=== PATIENT | female | born 1935 | race Caucasian/White ===

== ENCOUNTER 2018-01-08 17:33 | Emergency (ER) | payer MEDICARE ==
[~2018-01-08] VITALS: Ht 160 cm; Wt 125.0 kg
[2018-01-08 17:47] VITALS: Ht 160 cm; Wt 125.0 kg
[2018-01-08] MEDS ORDERED: [UNRECOGNIZED DRUG - REMARK] (17:48)
[2018-01-08] MEDS ORDERED: NORVASC5 MG PO (17:48)
[2018-01-08] MEDS ORDERED: LIPITOR20 MG PO (17:49)
[2018-01-08 17:54] VITALS: BP 154/100
[2018-01-08] MEDS ORDERED: TYLENOL W/CODEI1 TAB PO (20:13)
[2018-01-08] MEDS ORDERED: AUGMENTIN 875-11 TAB PO (20:13)
== END 2018-01-08 20:37 | disposition home or self-care (01) ==
LOC: D.ER 17:33
DX: S62.521A Displaced fracture of distal phalanx of right thumb, initial encounter for closed fracture (principal); W23.0XXA Caught, crushed, jammed, or pinched between moving objects, initial encounter; Y93.89 Activity, other specified; Y92.89 Other specified places as the place of occurrence of the external cause; I10 Essential (primary) hypertension; S61.011A Laceration without foreign body of right thumb without damage to nail, initial encounter

== ENCOUNTER → 2018-08-16 15:13 | Outpatient (CLI) | payer MEDICARE ==
[2018-01-08 17:47] VITALS: BMI 48.8
[~2018-08-16 15:13] MED LIST: AUGMENTIN 875-11 TAB PO; IRON PO; LIPITOR10 MG PO; NORVASC5 MG PO; TRAZODONE HCL150 MG PO; TYLENOL W/CODEI1 TAB PO; VITAMIN D250000 UNIT PO; [UNRECOGNIZED DRUG - REMARK]
== END | disposition home or self-care (01) ==
LOC: D.LABREF 15:13
PROVIDERS: ATTEND Orthopaedic Surgery
DX: M17.11 Unilateral primary osteoarthritis, right knee (principal)

== ENCOUNTER → 2018-08-26 08:01 | Outpatient (CLI) | payer MEDICARE, BC ==
[2018-01-08 17:47] VITALS: BMI 48.8
== END | disposition home or self-care (01) ==
LOC: D.HCCARDIO 08:01
PROVIDERS: ATTEND Internal Medicine Cardiovascular Disease
DX: R94.31 Abnormal electrocardiogram [ECG] [EKG] (principal)

== ENCOUNTER 2018-09-05 11:23 | Outpatient (CLI) | payer MEDICARE, BC ==
[~2018-09-05] VITALS: Ht 160 cm; Wt 115.9 kg
--- NOTE | ~2018-09-05 | HEMODYNAMI ---
PATIENT:JAYLON CALABRESE NOVEMBER MEDICAL RECORD: [id number] : [birth year] LOCATION:[facility] ADMISSION DATE: 09/05/18 Generatedon:09/05/201814:17 Patient name: JAYLON CALABRESE Patient #: [id number] SSN: : 05/17/1939 Date of study: 09/05/2018 Page: Of Hemodynamic Procedure Report Patient Data Patient Demographics Procedure consent was obtained First Name: JAYLON Gender: Female Last Name: BHARATI : 05/17/1939 Middle Initial: NOVEMBER Age: 79 year(s) Patient #: [id number] Race: Unknown Additional ID: [id number] Contact details [address]: [address] [place] [address] State: [place] City: [place] Zip code: [address] Admission Admission Data Admission Date: 09/05/2018 Admission Time: 11:23 Admit Source: Other Weight (lbs.): 255.52 Weight (kg.): 115.9 Lab Results Lab Result Date: 09/05/2018 Lab Result Time: 0:00 Biochemistry Name Units Result Min Max BUN mg/dl 17 --(---*)-- 7 18 Creatinine mg/dl 1.1 --(--*-)-- 0.6 1.3 CBC Name Units Result Min Max Hematocrit % 40 -*(----)-- 42 54 Hemoglobin g/dl 13.7 --(*---)-- 13.5 17.5 Procedure Procedure Types Cath Procedure Diagnostic Procedure LHC LH w/Coronaries Sedation Charges Moderate Sedation up to 15 minutes PCI Procedure Coronary Stent Coronary Stent Initial Procedure Description Procedure Date Procedure Date: 09/05/2018 Procedure Start Time: 13:50 Procedure End Time: 14:16 Procedure Staff Name Function Sean Mcdermott MD Performing Physician Lacey Garcia RN Nurse Sonya Nova RT Scrub Cedric Whitaker RT Monitor Procedure Data Cath Procedure Fluoroscopy Diagnostic fluoroscopy Total fluoroscopy Time: 8 time: 8 min min Diagnostic fluoroscopy Total fluoroscopy dose: dose: 1611 mGy 1611 mGy Contrast Material Contrast Material Type Amount (ml) Isovue 300 132 Entry Location Entry Primary Successful Side Size Upsize Upsize Entry Closure Hoang ccessful Closure Location (Fr) 1 (Fr) 2 (Fr) Remarks Device Remarks Radial Right 6 Fr Mechanical artery Short Compression Estimated blood loss: 10 ml Diagnostic catheters Device Type Used For End Catheter Placement DIAGNOSTIC [place] 4.5 5Fr Procedure catheter ([id number]) DIAGNOSTIC [place] 110cm 5 Procedure Fr catheter ([id number]) Procedure Complications No complications Procedure Medications Medication Administration Route Dosage Oxygen etCO2 Nasal cannula 2 l/min Lidocaine 2% added to field 20 Heparin Flush Bag added to field 2 bags (1000units/500ml NS) 0.9% NaCl I.V. 100 ml/hr Radial Cocktail I.A. 1 syringe (Verapomil 2mg/Nitro 400mcg/Heparin 1500units) Versed I.V. 1 mg Fentanyl I.V. 50 mcg Versed I.V. 1 mg Fentanyl I.V. 50 mcg Fentanyl I.V. 50 mcg Heparin Bolus I.V. 38246 units Plavix P.O. 600 mg Hemodynamics Rest HGB: 13.7 (g/dl) Heart Rate: 61 (bpm) Pressure Samples Time Site Value (mmHg) Purpose Heart Use Rate(bpm) 13:53 LV 100/-3,5 Snapshot 77 Gradients Valve Time Site Site Mean SEP/DFP Peak To Heart Use 1 2 (mmHg) (sec/min) Peak Rate (mmHg) (bpm) Aortic 13:54 LV AO 73 Snapshots Pre Cath Intra NCS Post Cath Vital Signs Time Heart Resp SPO2 etCO2 NIBP (mmHg) Rhythm Pain Sedation Rate (ipm) (%) (mmHg) Status Level (bpm) 13:34:16 63 14 100 33.1 150/93(120) NSR 0 (11) 10(A) , No pain 13:38:38 63 14 100 32.4 155/90(131) NSR 0 (11) 10(A) , No pain 13:42:58 65 16 99 36.1 144/83(112) NSR 0 (11) 10(A) , No pain 13:47:12 73 38 95 15.8 112/74(93) NSR 0 (11) 10(A) , No pain 13:51:26 68 10 96 0 96/66(81) NSR 0 (11) 9(A) , No pain 13:55:38 71 12 93 0 78/54(64) NSR 0 (11) 9(A) , No pain 13:59:46 62 11 95 0 91/50(68) NSR 0 (11) 9(A) , No pain 14:03:58 61 23 95 20.3 106/56(83) NSR 0 (11) 9(A) , No pain 14:08:14 62 1 97 28.6 103/63(77) NSR 0 (11) 9(A) , No pain 14:12:30 60 26 97 30.1 99/57(74) NSR 0 (11) 10(A) , No pain 14:16:42 0 102/60(83) NSR 0 (11) 10(A) , No pain Medications Time Medication Route Dose Verified Delivered Reason Not es Effectiveness by by 13:32:34 Oxygen etCO2 2 l/min Sean Buffie used for Nasal Baldemar Garcia RN procedure cannula 13:32:40 Lidocaine 2% added 20ml Sean Sean for local to vial Baldemar Mcdermott MD anesthetic field 13:32:46 Heparin Flush added 2 bags Sean Sean used for Bag to Baldemar Mcdermott MD procedure (1000units/500ml field NS) 13:32:55 0.9% NaCl I.V. 100 Sean Buffie Per physician ml/hr Baldemar Garcia RN 13:33:02 Radial Cocktail I.A. 1 Sean Sean for (Verapomil syringe Baldemar Mcdermott MD vasodilation 2mg/Nitro 400mcg/Heparin 1500units) 13:46:42 Versed I.V. 1 mg Sean Buffie for sedation Baldemar Garcia RN 13:46:48 Fentanyl I.V. 50 mcg Sean Buffie for sedation Baldemar Garcia RN 13:52:06 Versed I.V. 1 mg Sean Buffie for sedation Baldemar Garcia RN 13:52:10 Fentanyl I.V. 50 mcg Sean Buffie for sedation Baldemar Garcia RN 14:03:23 Heparin Bolus I.V. 01861 Sean Buffie for JOSÉ LUIS IFIED units Baldemar Garcia RN anticoagulation WITH DR MCDERMOTT 14:07:46 Fentanyl I.V. 50 mcg Sean Buffie for sedation Baldemar Garcia RN 14:13:30 Plavix P.O. 600 mg Sean Garcia RN antiplatelet therapy Procedure Log Time Note 12:23:21 Informed consent obtained and on chart 12:23:25 Admit Source: Other 12:23:43 Diagnostic Cath status Elective 12:23:46 Time tracking: Regular hours (M-F 7:00 - 5:00) 12:23:50 Plan of Care:Hemodynamics will remain stable., Cardiac rhythm will remain stable., Comfort level will be maintained., Respiratory function will remain adequate., Patient/ family verbilizes understanding of procedure., Procedure tolerated without complication., Recovers from procedure without complications.. 12:26:05 H&P Date Dictated: 09/01/2018 Within 30 days and on chart., H&P Addendum completed by physician on day of procedure. (MUST COMPLETE FOR ALL OUTPATIENTS). 12:41:38 Lab Result : BUN 17 mg/dl 12:41:38 Lab Result : Creatinine 1.1 mg/dl 12:41:52 Patient Weight : 255.52 lbs 13:18:01 Sonya Counts RT(R) sent for patient. Start room use. 13:24:16 Patient received from Pre/Post Procedure Room to CCL 2 Alert and oriented. Tansferred to table in Supine position. 13:24:17 Warm blankets applied, and clair hugger turned on for patient comfort. 13:24:17 Correct patient and procedure confirmed by team. 13:24:18 ECG and BP/O2 sat monitors applied to patient. 13:24:32 Pre-procedure instructions explained to patient. 13:24:33 Pre-op teaching completed and patient verbalized understanding. 13:24:34 Family in waiting room. 13:24:35 Patient NPO since Midnight. 13:32:34 Oxygen 2 l/min etCO2 Nasal cannula was administered by Lacey Garcia RN; used for procedure; 13:32:40 Lidocaine 2% 20ml vial added to field was administered by Sean Mcdermott MD; for local anesthetic; 13:32:46 Heparin Flush Bag (1000units/500ml NS) 2 bags added to field was administered by Sean Mcdermott MD; used for procedure; 13:32:55 0.9% NaCl 100 ml/hr I.V. was administered by Lacey Garcia RN; Per physician; 13:33:02 Radial Cocktail (Verapomil 2mg/Nitro 400mcg/Heparin 1500units) 1 syringe I.A. was administered by Sean Mcdermott MD; for vasodilation; 13:33:05 Vital chart was started 13:36:53 Baseline sample Acquired. 13:36:59 Rhythm: sinus rhythm 13:37:00 Full Disclosure recording started 13:37:02 Is the patient allergic to Iodine/contrast media? No. 13:37:03 Is patient on blood thinner?No 13:37:04 Patient diabetic? No. 13:37:06 Previous problem with sedation/anesthesia? No ? 13:37:07 Snore? Yes 13:37:09 Sleep apnea? No 13:37:09 Deviated septum? No 13:37:10 Opens mouth fully? Yes 13:37:11 Sticks out tongue? Yes 13:37:12 Airway obstruction? No ? 13:37:19 Dentures? Yes partial in tight 13:37:21 Pre procedure: right dorsailis pedis pulse 2+ Normal; easily identifiable; not easily obliterated 13:37:24 Patient pain scale 0/10 ?. 13:37:25 Modified Carl's test Ulnar < 7 seconds 13:37:29 IV patent on arrival in left forearm with 0.9% NaCl at [facility]. 13:37:31 Lab results completed and on chart. 13:37:36 Right Radial & Right Groin area was prepped with chlora-prep and draped in sterile fashion 13:37:37 Alarms reviewed by R. N. 13:37:37 Sharps counted by scrub and verified by R.N. 13:38:26 Lab Result : Hematocrit 40 % 13:38:26 Lab Result : Hemoglobin 13.7 g/dl 13:38:30 Use device set Radial Dx or PCI 13:38:31 ACIST Syringe (10527) opened to sterile field. 13:38:32 Medline Cath Pack ([id number]) opened to sterile field. 13:38:32 Bag Decanter () opened to sterile field. 13:38:33 ACIST Hand Control (90537) opened to sterile field. 13:38:34 ACIST Manifold (61778) opened to sterile field. 13:38:34 Tegaderm 4 x 4 (1626W) opened to sterile field. 13:38:35 MBrace Wrist Support ([id number]) opened to sterile field. 13:38:36 SHEATH 6FR Slender (57-2136) opened to sterile field. 13:38:37 NEEDLE Cook 21G 4cm Radial (N68450) opened to sterile field. 13:38:37 DIAGNOSTIC WIRE .035 260cm J wire (912817) opened to sterile field. 13:46:05 Physician arrived 13:46:05 --------ALL STOP TIME OUT------ 13:46:05 Final Timeout: patient, procedure, and site verified with staff and physician. All members of the team are in agreement. 13:46:07 Right Radial & Right Groin site verified by team. 13:46:10 Maximum allowable Isovue 300 dose 300ml. Physician notified. (300ml for normal creatinines. For patients with creatinine of 1.7 or higher multiply weight(kg) x 5 divided by creatinine.) 13:46:14 Fire Safety Assessment: A--An alcohol-based skin anteseptic being used preoperatively., C--Open oxygen or nitrous oxide is being used., D--An ESU, laser, or fiber-optic light is being used. 13:46:17 Physical assessment completed. ASA score P 2 - A patient with mild systemic disease as per Sean Mcdermott MD. 13:46:21 Sedation plan: IV Moderate Sedation Medication:Versed, Fentanyl 13:46:23 Zero performed for pressure channel P1 13:46:42 Versed 1 mg I.V. was administered by Lacey Garcia RN; for sedation; 13:46:48 Fentanyl 50 mcg I.V. was administered by Lacey Garcia RN; for sedation; 13:50:05 Procedure started. 13:50:10 Local anesthetic to right radial artery with Lidocaine 2% by Sean Mcdermott MD.INITIAL ACCESS ONLY 13:50:22 A 6 Fr Short sheath was inserted into the Right Radial artery 13:52:06 Versed 1 mg I.V. was administered by Lacey Garcia RN; for sedation; 13:52:10 Fentanyl 50 mcg I.V. was administered by Lacey Garcia RN; for sedation; 13:53:00 A DIAGNOSTIC [place] 110cm 5 Fr catheter (252139) was advanced over the wire and used for Procedure. 13:53:31 LV hemodynamics recorded. 13:53:32 LV gram done using GAVIRIA 13:53:35 Injector settings: Ml/sec: 5, Volume: 15, 13:53:47 EF : 60 % 13:54:12 RCA angiography performed. 13:57:13 Catheter removed. unable to cannulate vessel. 13:58:00 A DIAGNOSTIC [place] 4.5 5Fr catheter (315050) was advanced over the wire and used for Procedure. 13:59:06 LCA angiography performed. 14:00:07 Catheter exchanged over wire. 14:00:34 BMW 300cm Montgomery 2 J wire (1299698D) opened to sterile field. 14:00:34 INFLATOR Merit BasixCompak (PW6580) opened to sterile field. 14:00:35 TUBING High Pressure Extension Tubing (Baldemar) (GU9223D) opened to sterile field. 14:00:36 GUIDE 6FR XBLAD 3.5 catheter ([id number]) opened to sterile field. 14:03:23 Heparin Bolus 57650 units I.V. was administered by Lacey Garcia RN; for anticoagulation; VERIFIED WITH DR MCDERMOTT 14:04:22 6 Fr xblad 3.5 guide catheter was inserted over the wire 14:04:27 BMW wire advanced. 14:05:10 Wire advanced across lesion. 14:07:46 Fentanyl 50 mcg I.V. was administered by Lacey Garcia RN; for sedation; 14:08:15 Place stent Inflation Number: 1 A INTEGRITY OTW 3.5 X 15 stent ([id number]) was prepped and advanced across the Prox LAD. The stent was deployed at 16 LEXI for 0:10 (min:sec). 14:08:51 Stent catheter was removed intact over wire. 14:08:53 Wire removed. 14:08:53 Guide catheter removed. 14:10:01 TR BAND Standard ([id number]) opened to sterile field. 14:10:08 Sheath removed intact; hemostasis achieved with Mechanical Compression to the Right Radial artery. 14:10:10 Procedure ended.(Physican Out) 14:11:26 TR BAND Large ([id number]) opened to sterile field. 14:11:34 Fluoroscopy time 08.00 minutes. 14:11:37 Flurop Dose total: 1611 14:11:37 Fluoroscopy dose: 1611 mGy 14:11:42 Contrast amount:Isovue 300 132ml. 14:11:43 Sharps counted by scrub and verified by R.N. 14:11:46 TR band inflated with 13cc of air. 14:11:47 Insertion/operative site no bleeding no hematoma. 14:11:52 Post right radial artery:stable, soft, clean and dry 14:11:54 Post Procedure Pulses reassessed and unchanged 14:11:56 Post-procedure physical assessment completed. ASA score P 2 - A patient with mild systemic disease as per Sean Mcdermott MD. 14:11:58 Post procedure rhythm: unchanged. 14:12:00 Estimated blood loss: 10 ml 14:12:01 Post procedure instruction explained to patient.Patient verbalizes understanding. 14:12:02 Patient needs reinforcement of post procedure teaching. 14:13:11 Procedure type changed to Cath procedure, Diagnostic procedure, LHC, LHC w/Coronaries, Sedation Charges, Moderate Sedation up to 15 minutes, PCI procedure, Coronary Stent, Coronary Stent Initial 14:13:30 Plavix 600 mg P.O. was administered by Lacey Garcia RN; for antiplatelet therapy; 14:16:49 Procedure and supply charges have been captured, reviewed, submitted and are correct. 14:16:51 Procedure Complication : No complications 14:16:54 Vital chart was stopped 14:16:54 See physician's report for complete and final results. 14:16:56 Report given to Pre/Post Procedure Room. 14:16:57 Patient transfered to Pre/Post Procedure Room with Stretcher. 14:16:59 Procedure ended. 14:16:59 Full Disclosure recording stopped 14:17:03 End room use (Document Last) Intervention Summary Intervention Notes Time ActionType Lesion and Equipment Action# Pressure Duration Attributes Used 14:08:15 Place stent Prox LAD INTEGRITY 1 16 00:10 OTW 3.5 X 15 stent ([id number]) Device Usage Item Name Manufacture Quantity Catalog Hospital Part Current Minimal Lot# / Number Charge Number Stock Stock Serial# Code JEREMIAH Acist 1 18123 684785 859643 680310 20 Syringe Pear (formerly [employer]arel Media Group) (82052) Systems Inc Medline Medline 1 [id number] 844441 74636 571894 5 Cath Pack ([id number]) Bag Microtek 1 282343 66432 216154 5 Decanter Medical Inc. () ACIST Hand Acist 1 47658 664850 566528 374129 5 Control Medical (66936) Systems Inc ACIST Acist 1 51083 351723 008301 041123 5 Manifold Medical (86903) Systems Inc Tegaderm 4 3M 1 1626W 910489 871338 274508 5 x 4 (1626W) MBrace Advanced 1 140-0250-00 210039 98533 777204 5 Wrist Vascular Support Dynamics (692351044) SHEATH 6FR Terumo 1 [id number] 498493 248248 672119 5 Slender (80-1060) NEEDLE Cook Cook Medical 1 U61822 665946 978502 084077 5 21G 4cm Radial (X38618) DIAGNOSTIC St Dada 1 814706 015112 034421 366604 30 WIRE .035 260cm J wire (030237) DIAGNOSTIC Terumo 1 40-5012 874804 624381 471597 5 [place] 4.5 5Fr catheter (872287) BMW 300cm Ayon 1 [id number] 938254 025210 751996 5 Montgomery 2 Vascular J wire (2498197K) INFLATOR Merit 1 HS3863 851551 825228 180597 15 Merit Medical BasixCompak (KR2243) TUBING High Merit 1 OL7811C 165531 50056 392365 10 Pressure Medical Extension Tubing (Mcdermott) (RB3633X) GUIDE 6FR Cardinal 1 [id number] 079579 563557 037957 10 XBLAD 3.5 Health catheter (95081867) INTEGRITY Medtronic 1 [id number] 900861 568307 947850 0 [id number] OTW 3.5 X 15 stent ([id number]) TR BAND Terumo 1 [id number] 113809 978601 730346 40 Standard (BZJ50WDE) TR BAND Terumo 1 [id number]-[id number] 702853 771206 326608 40 Large ([id number]) DIAGNOSTIC Terumo 1 40-5013 387084 803643 042549 5 [place] 110cm 5 Fr catheter (535421) Signature Audit [place] Stage Time Signature Unsigned Intra-Procedure 09/05/2018 Cedric Whitaker 2:17:46 PM RT(R) Signatures Monitor : Cedric Whitaker RT Signature : Date : Time : [address] [place] [address]
[2018-09-05] MEDS ORDERED: BAYER CHEWABLE81 MG PO (11:45)
[2018-09-05 12:01] VITALS: BP 162/90; Ht 160 cm; Wt 115.9 kg
[2018-09-05 12:25] LABS: ANION GAP 12.5 mmol/L (8-16); CARBON DIOXIDE 24.1 mmol/L (21.0-32.0); CREATININE - SERUM 1.1 mg/dL (0.6-1.3); POTASSIUM - SERUM 4.6 mmol/L (3.5-5.1)
[2018-09-05 12:51] LABS: HEMOGLOBIN 13.7 g/dL (12-16); LYMPHOCYTES 17.1 % (15-50); MCH 31.9 pg (26.0-34.0); MCHC 34.3 g/dL (31.0-37.0); NEUTROPHILS 74.7 % (40-80); PLATELET COUNT 186 10x3/uL (130-400); RDW 12.9 % (11.5-14.5); WBC 4.5 10x3/uL (4.8-10.8)
--- NOTE | 2018-09-05 14:25 | NUR ---
PT RECEIVED VIA STRETCHER FROM DEHYDRATOR TENDER FOR RECOVERY. PT AWAKE BUT DROWSY. TR BAND AND IMMOBILIZER IN PLACE, DRESSING CDI NO BLEEDING OR HEMATOMA NOTED. CAP REFILL BRISK. PT DENIES PAIN OR NAUSEA. HR NSR RATE 67, BP 124/71, O2 SAT 96, PLACED ON 2L/NC. DR DAVIS IN AND SPOKE WITH PT AND GRANDDAUGHTER REGARDING PROCEDURE RESULTS AND PLAN OF CARE. CALL LIGHT IN REACH.
[2018-09-05] MEDS ORDERED: PLAVIX75 MG PO (14:33)
--- NOTE | 2018-09-05 14:45 | NUR ---
PT AWAKE, EATING SANDWICH. TR BAND IN PLACE, DRESSING CDI NO BLEEDING OR SWELLING NOTED. VSS. CALL LIGHT IN REACH. DENIES PAIN OR NEEDS. FAMILY AT BEDSIDE
--- NOTE | 2018-09-05 15:14 | NUR ---
TR BAND AND IMMOBILIZER IN PLACE. SMALL AREA OF LIGHT PUFFINESS NOTED DIRECTLY BELOW TR BAND. DENIES PAIN, NO SIGNS OF BLEEDING OR HEMATOMA WILL CONTINUE TO MONITOR.
--- NOTE | 2018-09-05 15:34 | NUR ---
PT RESTING W EYES CLOSED, TR BAND IN PLACE DRESSING REMAINS CDI NO BLEEDING NOTED. AREA OF SWELLING HAS NO CHANGE. PT DENIES ANY PAIN OR DISCOMFORT IN ARM OR HAND. VSS. CALL LIGHT IN REACH
--- NOTE | 2018-09-05 16:03 | NUR ---
PT RESTING W EYES CLOSED. TR BAND IN PLACE, DRESSING CDI NO CHANGE IN SWELLING AREA. NO BLEEDING OR HEMATOMA NOTED. VSS. CALL LIGHT IN REACH, DENIES NEEDS.
--- NOTE | 2018-09-05 16:28 | NUR ---
PT RESTING W EYES CLOSED. TR BAND AND IMMOBILIZER IN PLACE, DRESSING CDI NO BLEEDING OR HEMATOMA NOTED. AREA MARKED WITH NO CHANGE. PT DENIES PAIN OR NEEDS. FAMILY AT BEDSIDE.
--- NOTE | 2018-09-05 17:09 | NUR ---
5CC AIR REMOVED FROM TR BAND. NO BLEEDING OR HEMATOMA NOTED. CAP REFILL BRISK. HR 56, BP 115/68. PT DENIES PAIN OR NEEDS. CALL LIGHT IN REACH, FAMILY AT BEDSIDE.
--- NOTE | 2018-09-05 17:39 | NUR ---
4 ADD'L CC OF AIR REMOVED FROM TR BAND. NO BLEEDING OR HEMATOMA NOTED. AREA OF SWELLING WITH NO CHANGE. VSS. PT DENIES PAIN OR NEEDS. CALL LIGHT IN REACH
--- NOTE | 2018-09-05 18:06 | NUR ---
REMAINING AIR REMOVED FROM TR BAND. NO BLEEDING OR HEMATOMA NOTED ONLY SLIGHT BRUISING. MONITORS REMOVED AND IV REMOVED W CATH INTACT. DISCHARGE TEACHING REVIEWED W PT AND GRAND DAUGHTER. PT UP TO DRESS WITH ASSIST.
--- NOTE | 2018-09-05 18:15 | NUR ---
TR BAND REMOVED, 2X2 AND TEGADERM DRESSING APPLIED. PT INSTRUCTED ON WATCHING AREA FOR BLEEDING OR ANY ADDITIONAL SWELLING.
--- NOTE | 2018-09-05 18:26 | NUR ---
PT TO BR IN WC, VOIDED W/O DIFFICULTY. PT DISCHARGED TO PRIVATE VEHICLE VIA WC.
== END 2018-09-05 18:25 | disposition home or self-care (01) ==
LOC: D.CATH 11:23
PROVIDERS: ATTEND Internal Medicine Cardiovascular Disease
DX: I25.119 Atherosclerotic heart disease of native coronary artery with unspecified angina pectoris (principal); Z01.812 Encounter for preprocedural laboratory examination

== ENCOUNTER 2018-10-05 15:15 | Inpatient (IN) | payer MEDICARE, BC ==
[~2018-10-05] VITALS: Ht 160 cm; Wt 124.7 kg
[~2018-10-05 15:15] MED LIST changes: +BAYER CHEWABLE81 MG PO; +PLAVIX75 MG PO
[2018-10-24 11:36] LABS: ANION GAP 8.2 mmol/L (8-16); CALCIUM 9.1 mg/dL (8.5-10.1); CARBON DIOXIDE 28.4 mmol/L (21.0-32.0); POTASSIUM - SERUM 4.6 mmol/L (3.5-5.1)
[2018-10-24 11:43] LABS: APTT 27.2 SECONDS (22.8-39.4); BASOPHILS 0.2 % (0-2); EOSINOPHILS 2.1 % (0-7); HEMATOCRIT 39.1 % (36.0-48.0); HEMOGLOBIN 12.9 g/dL (12-16); IMMATURE GRANULOCYTES 0.2 % (0-5); LYMPHOCYTES 20.7 % (15-50); MCH 30.8 pg (26.0-34.0); MCV 93.3 fL (80.0-100.0); MEAN PLATELET VOLUME 10.8 fL (7.4-10.4); MONOCYTES 8.7 % (2-11); NEUTROPHILS 68.1 % (40-80); PLATELET COUNT 210 10x3/uL (130-400); PROTIME 12.7 SECONDS (11.6-15.0); RBC 4.19 10x6/uL (4.00-5.40); RDW 14.3 % (11.5-14.5); WBC 4.3 10x3/uL (4.8-10.8)
[2018-10-24 11:48] LABS: APPEARANCE HAZY (CLEAR); BILIRUBIN NEGATIVE (NEGATIVE); COLOR YELLOW (YELLOW); GLUCOSE NEGATIVE (NEGATIVE); KETONE NEGATIVE (NEGATIVE); NITRITE NEGATIVE (NEGATIVE); PROTEIN NEGATIVE (NEGATIVE); SPECIFIC GRAVITY 1.015 (1.005-1.020)
[2018-10-25 06:38] VITALS: BP 143/76
[2018-10-25 10:12] VITALS: BP 121/70
--- NOTE | 2018-10-25 12:09 | OP ---
PATIENT NAME: JAYLON CARVAJAL MEDICAL RECORD: [id number] :[birth year] LOCATION:[facility]10 ADMISSION DATE:10/25/18 SURGEON: FRITZ GONZALES DO DATE OF OPERATION: 10/25/2018 PROCEDURE PERFORMED: Right total knee arthroplasty. PREOPERATIVE DIAGNOSIS: Right knee osteoarthritis. POSTOPERATIVE DIAGNOSIS: Right knee osteoarthritis. INDICATIONS: Ms. Carvajal is a 79-year-old female who has dealt with right knee pain and instability for quite some time. She was tired of dealing with the pain. She had the left knee done years ago, did well with that. The right knee is giving her more and more trouble. She wanted a knee replacement done as she had been through it before. She was aware of the risks and benefits including infection, bleeding, damage to nerves and vessels, need for further surgery, loosening, blood clots and even . SURGEON: Fritz Gonzales DO DESCRIPTION OF PROCEDURE: The patient was taken to the operative suite. I was assisted by Cole Khan, advanced nurse practitioner. She was given a block by anesthesia preoperatively and then taken to the operative suite, laid in supine position, given general anesthetic and LMA was placed. The right lower extremity was then prepped and draped in sterile fashion. Timeout was performed. Everyone was in agreeance with the correct side, site, patient and procedure. The incision was then marked out and skin covered in Ioban. Once again, scrubbed with Ioban. A timeout had been performed. The incision began down with a 10-blade scalpel on the skin, down to the capsule. Capsule was peeled, cleared off and any bleeding was coagulated with the Aquamantys throughout the procedure. The fresh 10-blade was then used for the medial parapatellar approach through the capsule and part of the fat pad was removed at that time. The patella was everted and milled down to fit the patellar prosthesis. Once that was done, the femur was exposed and the intramedullary canal was entered. When the intramedullary canal was entered, this was then irrigated and then the distal femur guide was put in, marked with 3 degrees of valgus due to her valgus deformity and pinned in place and the distal femur was cut. Once the distal femur was cut, bone was removed and then the tibia was exposed. Once the tibia was exposed, the cutting guide was put on and measured off the lateral side due to the valgus deformity and this was pinned into place and the tibia was cut. The bone was removed. Then, the knee was brought to extension. Laminar wood room hand was used to spread the soft tissue and the menisci were removed and then the posterior capsule and any bleeding was coagulated with the Aquamantys. The extension block fit very well. Then, the femur was exposed. Again, the knee was flexed up and measured to be 60. This was drilled and then the 4-in-1 cutting block was used. The ba wing was then used to ensure no notching was going to happen and then the cutting block was pinned into place. The 4-in-1 cutting block was used to cut the distal femur and the excess bone was removed. The trial 60 was then put on. Once the trial was put on, the tibia was floated in and marked for rotation. Then, the patella was drilled for the implant. Once the patella had been drilled for the implant, the tibia was exposed and sized to be 67. This was drilled and then punched and then the cement was mixed. The implants were then opened and cement was placed on the tibial implant and on the tibia and then impacted and excess cement was OPERATIVE REPORT [id number] JAYLON CARVAJAL removed. The femur was then impacted on and then a poly was put in between them and brought to extension and then the patella was then cemented in and the patellar squeezer was used to hold it while the cement dried. Excess cement was removed at that time. Knee was thoroughly irrigated at that time, and then once the cement dried, we trialed with a 10 and then a 14 poly, 14 poly fit very well, had good stability in medial and lateral extension and flexion and good extension. Then, I placed the 14 E poly, anterior stabilized bearing and locked it into place. The knee was then irrigated once more and a Surgicel powder, and tobramycin and Vancomycin powder was then placed in the knee. Capsule was then closed with #2 Ethibond in a [id number] fashion, the skin with 2-0 Vicryl in an inverted interrupted fashion and the ZipLine was placed on the knee. Adaptic, 4 x 4s, ABD, Webril, Osbaldo wrap and a MORENO stocking was placed up to the knee. The patient was awakened and taken to recovery in stable condition. Blood loss was approximately 200 mL. COMPLICATIONS: None. TRANSINT:[id number] Voice Confirmation ID: [id number] DOCUMENT ID: [id number] FRITZ GONZALES DO at 1209 CC: [id number] DICTATION DATE: 10/25/18 0848 WELL DRILLER HELPER: 10/25/18 1123 ADM IN [place] [id number] [place] [address]
[2018-10-25 14:08] VITALS: BP 138/65
[2018-10-25 14:10] VITALS: BMI 48.8
[2018-10-25 15:39] LABS: BASOPHILS 0 % (0-2); EOSINOPHILS 0 % (0-7); HEMATOCRIT 36.6 % (36.0-48.0); HEMOGLOBIN 11.9 g/dL (12-16); IMMATURE GRANULOCYTES 0.2 % (0-5); LYMPHOCYTES 6.2 % (15-50); MCH 30.8 pg (26.0-34.0); MCHC 32.5 g/dL (31.0-37.0); MCV 94.8 fL (80.0-100.0); MEAN PLATELET VOLUME 10.8 fL (7.4-10.4); MONOCYTES 1.6 % (2-11); PLATELET COUNT 170 10x3/uL (130-400); RBC 3.86 10x6/uL (4.00-5.40); RDW 14.6 % (11.5-14.5)
[2018-10-25 15:42] LABS: WBC 6.3 10x3/uL (4.8-10.8)
[2018-10-25 15:55] LABS: ALBUMIN 2.7 g/dL (3.4-5.0); BILIRUBIN - TOTAL 0.39 mg/dL (0.2-1.3); CALCIUM 8.3 mg/dL (8.5-10.1); CARBON DIOXIDE 23.9 mmol/L (21.0-32.0); CREATININE - SERUM 1.2 mg/dL (0.6-1.3); POTASSIUM - SERUM 4.9 mmol/L (3.5-5.1); PROTEIN - SERUM 7.3 g/dL (6.4-8.2)
[2018-10-25 17:47] VITALS: BP 123/65
--- NOTE | 2018-10-25 18:21 | NUR ---
I have reviewed this patient and I concur with the Shift Assessment completed by the Licensed Practical Nurse today this shift.
--- NOTE | 2018-10-25 20:00 | NUR ---
AWAKE,ALERT WITH CONFUSION NOTED. RESP EVEN AND UNALBORED. NO DISTRESS NOTED.IV TO RIGHT HAND INTACT WITHOUT REDNESS OR EDEMA NOTED. LEYDA WRAP DRESSING INTACT TO RIGHT KNEE WITHOUT DRAINAGE NOTED.CL IN REACH.FALL PRECAUTIONS IN PLACE.
[2018-10-25 21:18] VITALS: BP 134/67
--- NOTE | 2018-10-26 00:52 | NUR ---
I have reviewed this patient and I concur with the Shift Assessment completed by the Licensed Practical Nurse today this shift.
[2018-10-26 05:07] LABS: BASOPHILS 0 % (0-2); EOSINOPHILS 0 % (0-7); HEMATOCRIT 35.1 % (36.0-48.0); HEMOGLOBIN 11.6 g/dL (12-16); IMMATURE GRANULOCYTES 0.3 % (0-5); LYMPHOCYTES 12.5 % (15-50); MCH 30.9 pg (26.0-34.0); MCV 93.4 fL (80.0-100.0); MEAN PLATELET VOLUME 10.6 fL (7.4-10.4); MONOCYTES 9.6 % (2-11); NEUTROPHILS 77.6 % (40-80); PLATELET COUNT 186 10x3/uL (130-400); RBC 3.76 10x6/uL (4.00-5.40); RDW 14.4 % (11.5-14.5); WBC 6.5 10x3/uL (4.8-10.8)
[2018-10-26 05:29] LABS: ALBUMIN 2.8 g/dL (3.4-5.0); ANION GAP 7.5 mmol/L (8-16); BILIRUBIN - TOTAL 0.48 mg/dL (0.2-1.3); CALCIUM 8.4 mg/dL (8.5-10.1); CARBON DIOXIDE 26.6 mmol/L (21.0-32.0); PROTEIN - SERUM 7.4 g/dL (6.4-8.2)
[2018-10-26 05:41] LABS: CREATININE - SERUM 0.8 mg/dL (0.6-1.3); POTASSIUM - SERUM 4.1 mmol/L (3.5-5.1)
[2018-10-26 05:58] VITALS: BP 151/83
--- NOTE | 2018-10-26 07:52 | NUR ---
ASSESSMENT PER FLOW SHEET. PT IS WITHOUT DISTRESS. CPM IN PLACE. DRESSING RIGHT KNEE CLEAN,DRY AND INTACT. FALL PREVENTION IN PLACE WITH BED ALARM ON AND WORKING.DOOR OPEN.CALL LIGHT IN REACH
[2018-10-26 09:47] VITALS: BP 156/82
[2018-10-26 10:25] VITALS: Ht 160 cm; Wt 124.7 kg
[2018-10-26 12:00] VITALS: BP 120/91
--- NOTE | 2018-10-26 14:18 | MORECARE ---
CASE MANAGEMENT DISCHARGE SUMMARY PATIENT: JAYLON CALABRESE NOVEMBER UNIT: [id number] ADM DATE: 10/25/18 AGE: 79 : [birth year] SEX: F ROOM/BED: D.2210 AUTHOR: VALENTINA SMITH PHYSICIAN: REFERRING PHYSICIAN: TAMMIE GONZALES DO DATE OF SERVICE: 10/26/18 Discharge Plan Patient Name: JAYLON CALABRESE [facility] [facility] 05/17/1939 Planned Disposition: Home or Self Care Anticipated Discharge Date: Discharge Date: Expected LOS: Initial Reviewer: [email or web address] Initial Review Date: 10/25/2018 Generated: 10/26/18 3:18 pm DCPIA - Discharge Planning Initial Assessment Updated by [email or web address]: Rula Ruiz on 10/26/18 2:16 pm * Is the patient Alert and Oriented? Yes * How many steps to enter\exit or inside your home? * [facility] * Preadmission Environment Home with Family * ADLs Independent * Equipment Bedside Commode Rolling Walker * Other Equipment CPM ICE MACHINE * List name and contact numbers for known caregivers / representatives who currently or will assist patient after discharge: CHRIST [phone] * Verbal permission to speak to the caregivers and representatives has been obtained from the patient. N/A * Community resources currently utilized None * Additional services required to return to the preadmission environment? Yes * Can the patient safely return to the preadmission environment? No * Has this patient been hospitalized within the prior 30 days at any hospital? No External Providers External Provider: Brian HAZEL Next Contact Date: Service Request Date: Service Type: Resolution: Reviewer: Comments: Patient Name: JAYLON CALABRESE Page 19715 at 1418 All edits/amendments must be made on the electronic document DICTATION DATE: 10/26/181417 BUS AIDE: MARTHA 10/26/181417 RPT#: [id number] DC DATE: STATUS: ADM IN [facility] [address] [place] [address] END OF REPORT
--- NOTE | 2018-10-26 14:27 | MORECARE ---
CASE MANAGEMENT DISCHARGE SUMMARY PATIENT: JAYLON CALABRESE UNIT: [id number] ADM DATE: 10/25/18 AGE: 79 : [birth year] SEX: F ROOM/BED: D.2210 AUTHOR: VALENTINA SMITH PHYSICIAN: REFERRING PHYSICIAN: TAMMIE GONZALES DO DATE OF SERVICE: 10/26/18 Discharge Plan Patient Name: JAYLON CALABRESE Facility: [facility]:[place] : 05/17/1939 Planned Disposition: Home or Self Care Anticipated Discharge Date: Discharge Date: Expected LOS: Initial Reviewer: [email or web address] Initial Review Date: 10/25/2018 Generated: 10/26/18 3:27 pm Comments DCP- Discharge Planning Updated by [email or web address]: Rula Ruiz on 10/26/18 1:[address] Patient Name: JAYLON CALABRESE Admission Status: Elective Accout number: [id number] Admission Date: 10-25-2018 : 05-17-1939 Admission Diagnosis: Attending: TAMMIE GONZALES Current LOS: 1 Anticipated DC Date: Planned Disposition: Home or Self Care Primary Insurance: MEDICARE A & B Discharge Planning Comments: CM met with patient to complete initial dc planning assessment. CM educated patient on the CM role and verbal consent given by patient to complete assessment. Patient lives at home with her daughter where she is independent. At discharge patient plans to return home and feels this is a safe discharge. Charu her daughter will be her starting gate driver home. CM discussed availability of home health, rehab services, and medical equipment. She has a BSC, Walker, Ice Machine, CPM at home that was set up by Dr Gonzales's office. She would like to do her op pt at [place] and [facility] [place], I spoke with Gabriella and her appointment is made for 10/31/18 @ 8:00 am. Patient denied known discharge needs at this time. CM will continue to follow and will assist as needed with dc plans/needs. Branch Service Associate: Rula Ruiz DCPIA - Discharge Planning Initial Assessment Updated by [email or web address]: Rula Ruiz on 10/26/18 2:16 pm * Is the patient Alert and Oriented? Yes * How many steps to enter\exit or inside your home? * PCP [facility] * Pharmacy [facility] * Preadmission Environment Home with Family * ADLs Independent * Equipment Bedside Commode Rolling Walker * Other Equipment CPM ICE MACHINE * List name and contact numbers for known caregivers / representatives who currently or will assist patient after discharge: CHARU [phone] * Verbal permission to speak to the caregivers and representatives has been obtained from the patient. N/A * Community resources currently utilized None * Additional services required to return to the preadmission environment? Yes * Can the patient safely return to the preadmission environment? No * Has this patient been hospitalized within the prior 30 days at any hospital? No Last DP export: 10/26/18 1:18 p Patient Name: JAYLON CALABRESE Page [id number] at 1427 All edits/amendments must be made on the electronic document DICTATION DATE: 10/26/181426 SUPERVISOR ASSEMBLY AND PACKING: MARTHA 10/26/181426 RPT#: [id number] DC DATE: STATUS: ADM IN [facility] [address] [place] [address] END OF REPORT
--- NOTE | 2018-10-26 14:31 | NUR ---
PAIN MEDS ORDERED PER AUG.
[2018-10-26 16:39] VITALS: BP 127/74
[2018-10-26 20:00] VITALS: BP 132/69
--- NOTE | 2018-10-26 20:56 | NUR ---
LYING QUIETLY. C/O PAIN TO RIGHT KNEE. NORCO 10MG 1 TAB GIVEN PER ORDERS. LEYDA WRAP INTACT WITHTOUT DRAINAGE NOTED. CPM IN PROGRESS AT THIS TIME. IV INFUSING TO LEFT HAND WITHOUT REDNESS OR EDEMA NOTED. CL IN REACH
--- NOTE | 2018-10-27 02:55 | NUR ---
I have reviewed this patient and I concur with the Shift Assessment completed by the Licensed Practical Nurse today this shift.
[2018-10-27 04:00] VITALS: BP 113/67
[2018-10-27 05:55] LABS: BASOPHILS 0.2 % (0-2); EOSINOPHILS 1.7 % (0-7); HEMATOCRIT 33.4 % (36.0-48.0); HEMOGLOBIN 10.8 g/dL (12-16); IMMATURE GRANULOCYTES 0.4 % (0-5); MCH 30.6 pg (26.0-34.0); MCHC 32.3 g/dL (31.0-37.0); MCV 94.6 fL (80.0-100.0); MEAN PLATELET VOLUME 10.8 fL (7.4-10.4); MONOCYTES 15.4 % (2-11); NEUTROPHILS 58.3 % (40-80); PLATELET COUNT 177 10x3/uL (130-400); RBC 3.53 10x6/uL (4.00-5.40); RDW 14.8 % (11.5-14.5); WBC 5.2 10x3/uL (4.8-10.8)
[2018-10-27 06:10] LABS: ALBUMIN 2.5 g/dL (3.4-5.0); ANION GAP 10.1 mmol/L (8-16); BILIRUBIN - TOTAL 0.62 mg/dL (0.2-1.3); CALCIUM 8.5 mg/dL (8.5-10.1); CARBON DIOXIDE 27.1 mmol/L (21.0-32.0); POTASSIUM - SERUM 4.2 mmol/L (3.5-5.1)
--- NOTE | 2018-10-27 08:00 | NUR ---
ASSESSMENT PER FLOW SHEET. PT IS WITHOUT DISTRESS.FALL PREVENTION IN PLACE.CALL LIGHT IN REACH.DOOR OPEN
[2018-10-27 09:39] VITALS: BP 168/74
[2018-10-27] MEDS ORDERED: ELIQUIS2.5 MG PO (12:27)
[2018-10-27] MEDS ORDERED: HYDROCODON-ACE1 EA10 PO (12:28)
[2018-10-27] MEDS ORDERED: KEFLEX500 MG PO (12:28)
--- NOTE | 2018-10-27 13:02 | NUR ---
DRESSING CHANGE ORDERED. PT TOLERATED WELL. REMAINS UP IN CHAIR. SHE IS EATING LUNCH NOW.FALL PREVENTION REMAINS IN PLACE.
[2018-10-27 13:08] VITALS: BP 131/57
--- NOTE | 2018-10-27 14:13 | MORECARE ---
CASE MANAGEMENT DISCHARGE SUMMARY PATIENT: JAYLON CALABRESE UNIT: [id number] ADM DATE: 10/25/18 AGE: 79 : [birth year] SEX: F ROOM/BED: D.2210 AUTHOR: VALENTINA SMITH PHYSICIAN: REFERRING PHYSICIAN: TAMMIE GONZALES DO DATE OF SERVICE: 10/27/18 Discharge Plan Patient Name: JAYLON CALABRESE Facility: [facility]:[place] : 05/17/1939 Planned Disposition: Home or Self Care Anticipated Discharge Date: Discharge Date: Expected LOS: Initial Reviewer: [email or web address] Initial Review Date: 10/25/2018 Generated: 10/27/18 3:13 pm Comments DCP- Discharge Planning Updated by [email or web address]: Rula Ruiz on 10/27/18 1:[address] Patient Name: JAYLON CALABRESE Encounter No: [id number] : 05-17-1939 Primary Insurance: MEDICARE A & B Anticipated DC Date: Planned Disposition: Home or Self Care External Planned Provider: : DCP follow-up note: Patient and family in agreement with discharge plan. No changes to plan. Case management will follow and assist as needed. Rula Ruiz DCP- Discharge Planning Updated by [email or web address]: Rula Ruiz on 10/26/18 1:[address] Patient Name: AJYLON CALABRESE Admission Status: Elective Accout number: [id number] Admission Date: 10-25-2018 : 05-17-1939 Admission Diagnosis: Attending: TAMMIE GONZALES Current LOS: 1 Anticipated DC Date: Planned Disposition: Home or Self Care Primary Insurance: MEDICARE A & B Discharge Planning Comments: CM met with patient to complete initial dc planning assessment. CM educated patient on the CM role and verbal consent given by patient to complete assessment. Patient lives at home with her daughter where she is independent. At discharge patient plans to return home and feels this is a safe discharge. Charu her daughter will be her star route mail driver home. CM discussed availability of home health, rehab services, and medical equipment. She has a BSC, Walker, Ice Machine, CPM at home that was set up by Dr Gonzales's office. She would like to do her op pt at [place] and [facility] in the [facility], I spoke with Gabriella and her appointment is made for 10/31/18 @ 8:00 am. Patient denied known discharge needs at this time. CM will continue to follow and will assist as needed with dc plans/needs. Power Line Installer: Rula Ruiz DCPIA - Discharge Planning Initial Assessment Updated by [email or web address]: Rula Ruiz on 10/26/18 2:16 pm * Is the patient Alert and Oriented? Yes * How many steps to enter\exit or inside your home? * PCP [facility] * Pharmacy [facility] * Preadmission Environment Home with Family * ADLs Independent * Equipment Bedside Commode Rolling Walker * Other Equipment CPM ICE MACHINE * List name and contact numbers for known caregivers / representatives who currently or will assist patient after discharge: CHARU [phone] * Verbal permission to speak to the caregivers and representatives has been obtained from the patient. N/A * Community resources currently utilized None * Additional services required to return to the preadmission environment? Yes * Can the patient safely return to the preadmission environment? No * Has this patient been hospitalized within the prior 30 days at any hospital? No Last DP export: 10/26/18 1:27 p Patient Name: JAYLON CALABRESE Page [phone] at 1413 All edits/amendments must be made on the electronic document DICTATION DATE: 10/27/181412 HEALTH TECHNICAL WRITER: MARTHA 10/27/181412 RPT#: [id number] DC DATE: STATUS: ADM IN [facility] [address] [place] [address] END OF REPORT
[2018-10-27 16:03] VITALS: BP 138/58
--- NOTE | 2018-10-27 16:09 | NUR ---
DISCAHRGE INSTRUCTIONS COVERED WITH PT AND PT DAUGHTER. PRINTED RX GIVEN TO PT. PIV REMOVED FROM LEFT HAND WITH CATHETER TIP INTACT. DRESSING APPLIED. PT AND PT DAUGHTER DENY FURTHER QUESTIONS/CONCERNS AT THIS TIME. ALL DISCHARGE PAPERS SIGNED BY PT. SIGNED DISCHARGE PAPERWORK PLACED IN PT CHART.
--- NOTE | 2018-10-27 17:03 | NUR ---
LEFT UNIT VIA WHEELCHAIR FOR TRANSPORT HOME
== END 2018-10-27 17:03 | disposition home or self-care (01) | DRG 470 ==
LOC: D.MS 10-25 05:00 → D.SDCHOLD 10-25 05:00 → D.MS 10-25 09:51
PROVIDERS: Emergency Medicine; ADMIT Orthopaedic Surgery; ATTEND Orthopaedic Surgery
PROC: 0SRC0J9 Replacement of Right Knee Joint with Synthetic Substitute, Cemented, Open Approach (ICD-10-PCS; principal; 2018-10-25 07:00)
DX: M17.11 Unilateral primary osteoarthritis, right knee (principal); D62 Acute posthemorrhagic anemia; Z68.42 Body mass index [BMI] 45.0-49.9, adult; K74.60 Unspecified cirrhosis of liver; I10 Essential (primary) hypertension; E66.9 Obesity, unspecified